=== PATIENT | male | born 1990 | race Caucasian/White ===

== ENCOUNTER 2018-03-12 00:07 | Inpatient (IN) | payer MEDICAID ==
[~2018-03-12] VITALS: Ht 172.7 cm; Wt 103.8 kg
[2018-03-12] MEDS ORDERED: LORA0.5T2 PO (00:23)
[2018-03-12 00:44] LABS: BASOPHILS % (AUTO) 1.2 % (0.0-2.0); EOSINOPHILS % (AUTO) 3.1 % (1.0-6.0); HEMATOCRIT 48.4 % (41-53); HEMOGLOBIN 17.2 g/dL (13.5-17.5); LYMPHOCYTES # (AUTO) 4.8 K/uL (1.0-4.8); LYMPHOCYTES % (AUTO) 46.2 % (22.0-44.0); MEAN CORPUSCULAR HEMOGLOBIN 33.6 pg (26.0-34.0); MEAN CORPUSCULAR HGB CONC 35.5 G/dL (31.0-37.0); MEAN CORPUSCULAR VOLUME 95 fL (80-100); MONOCYTES # (AUTO) 0.7 K/uL (0.1-1.0); MONOCYTES % (AUTO) 6.8 % (2.0-9.0); NEUTROPHILS # (AUTO) 4.4 K/uL (1.8-7.7); NEUTROPHILS % (AUTO) 42.7 % (40.0-70.0); PLATELET COUNT (AUTO) 372 K/uL (150-450); RED BLOOD CELL COUNT(AUTO) 5.12 MIL/uL (4.50-5.90); RED CELL DISTRIBUTION WIDTH 13.2 % (11.5-14.5)
[2018-03-12 00:55] LABS: ALANINE AMINOTRANSFERASE 46 U/L (12-78); ALKALINE PHOSPHATASE 153 U/L (46-116); ANION GAP 7 mmol/L (8-16); ASPARTATE AMINOTRANSFERASE 20 U/L (15-37); BILIRUBIN,TOTAL 0.3 mg/dL (0.1-1.0); CALCIUM, TOTAL 8.3 mg/dL (8.8-10.5); CARBON DIOXIDE 29 mmol/L (22-29); CHLORIDE 102 mmol/L (98-107); CREATININE 0.79 mg/dL (0.60-1.30); GLOMERULAR FILTR. RATE CALC > 60 mL/min (>60); GLUCOSE,RANDOM 86 mg/dL (70-110); POTASSIUM 4.1 mmol/L (3.5-5.1); SODIUM SERUM 138 mmol/L (136-145); TOTAL PROTEIN, SERUM 8.1 g/dL (6.4-8.2)
[2018-03-12 01:12] LABS: UREA NITROGEN, BLOOD 14 mg/dL (7-18)
[2018-03-12 04:24] LABS: AMPHET/METH SCREEN,URINE POSITIVE (NEGATIVE); BARBITURATE SCREEN, URINE NEGATIVE (NEGATIVE); BENZODIAZEPINES SCREEN,URINE NEGATIVE (NEGATIVE); CANNABINOID SCREEN,URINE POSITIVE (NEGATIVE); COCAINE SCREEN,URINE NEGATIVE (NEGATIVE); METHADONE SCREEN, URINE NEGATIVE (NEGATIVE); OPIATE SCREEN,URINE NEGATIVE (NEGATIVE)
[2018-03-12 04:25] LABS: PHENCYCLIDINE SCREEN,URINE NEGATIVE (NEGATIVE)
[2018-03-12] MEDS ORDERED: HALOPERIDOL 5 MG TABLET PO PRN (06:30)
[2018-03-12] MEDS ORDERED: ZOLPIDEM TARTRATE 10 MG TABLET PO PRN (06:30)
[2018-03-12] MEDS ORDERED: LORazepam 2 MG TABLET PO PRN (06:30)
[2018-03-12 07:44] LABS: CHOL/HDL RATIO 2.1 (4.2-7.3); CHOLESTEROL 126 mg/dL (131-200); HDL CHOLESTEROL 59 mg/dL (40-60); LDL CHOL (CALC.) 16 mg/dL (0-130); TRIGLYCERIDES 257 mg/dL (15-150)
[2018-03-12 20:51] VITALS: BP 136/89
[2018-03-13] VITALS (9 sets, daily range): BP systolic 111–141; BP diastolic 61–87
[2018-03-13] MEDS ORDERED: IBUPROFEN 400 MG TABLET PO PRN (11:45)
[2018-03-13] MEDS ORDERED: ACETAMINOPHEN 325 MG TABLET PO PRN (11:45)
[2018-03-13] MEDS ORDERED: RisperiDONE 1 MG TABLET PO SCH (21:00)
[2018-03-14 06:17] VITALS: BP 115/68
[2018-03-14 07:19] VITALS: BP 122/70
[2018-03-14 08:09] VITALS: BP 125/66
[2018-03-14 13:30] VITALS: BP 132/74
[2018-03-14] MEDS ORDERED: RISP1TAB89 PO (14:04)
[2018-03-14 15:25] VITALS: BP 130/74
== END 2018-03-14 16:00 | disposition home or self-care (01) | DRG 751 ==
LOC: EMS 00:08 → 3EI 06:49 → UNDOADMIN 06:49 → B3A 19:26
DX: F29 Unspecified psychosis not due to a substance or known physiological condition (principal); R45.851 Suicidal ideations; K74.60 Unspecified cirrhosis of liver; I10 Essential (primary) hypertension; J45.909 Unspecified asthma, uncomplicated; F43.10 Post-traumatic stress disorder, unspecified; E78.5 Hyperlipidemia, unspecified; F12.90 Cannabis use, unspecified, uncomplicated; F15.10 Other stimulant abuse, uncomplicated; F10.20 Alcohol dependence, uncomplicated
CPT/HCPCS: 99285; G0480